=== PATIENT | female | born 1940 | race Caucasian/White ===

== ENCOUNTER → 2017-03-06 | Outpatient (CLI) | payer MEDICARE, OTHER | END | disposition home or self-care (01) | LOC: GMAM 11:39 | PROVIDERS: ATTEND Family Medicine | DX: N39.0 Urinary tract infection, site not specified (principal); R11.2 Nausea with vomiting, unspecified ==

== ENCOUNTER → 2017-03-27 | Outpatient (CLI) | payer MEDICARE, OTHER | END | disposition home or self-care (01) | LOC: GMAH 10:49 | PROVIDERS: ATTEND Family Medicine | DX: E03.9 Hypothyroidism, unspecified (principal) ==

== ENCOUNTER → 2017-03-28 | Outpatient (CLI) | payer MEDICARE, OTHER ==
--- NOTE | 2017-03-29 08:51 | US ---
EXAM DESCRIPTION: Soft Tissue,Head/Neck CLINICAL HISTORY: 76 years, Female, SWELLING , right lower left neck COMPARISON: None. FINDINGS: Scanning of the perceived lump in the basal left side of neck is obtained. Lump corresponds to smooth 5.4 x 4.1 x 2.3 cm lesion with relatively little vascularity. Echogenicity similar to subcutaneous fat. IMPRESSION: Lump has features of a benign lipoma. It should be safe to follow this clinically. If additional characterization is needed CT or MRI can be considered Electronically signed by: Godfrey Driscoll MD 03/29/2017 8:49 AM CDT
== END | disposition home or self-care (01) ==
LOC: US 09:50
PROVIDERS: ATTEND Family Medicine
DX: R60.0 Localized edema (principal)

== ENCOUNTER 2017-07-10 08:00 | Day surgery (SDC) | payer MEDICARE, OTHER ==
[~2017-07-10 08:00] MED LIST: LIDOCAINE 1% MPF 5 ML VIAL ONE; PROPARACAINE 0.5% OPHTH SOL 15 ML BTTL ONE; TROP 1%/CYCLOPEN 1%/PHENYL 2% DROPS ONE
[2017-07-10] MEDS ORDERED: PROPARACAINE 0.5% OPHTH SOL 15 ML BTTL LEFT_EYE ONE ×2 (08:10→09:43)
[2017-07-10] MEDS: TOBRAMYCIN SULF 0.3 % OPHT SOL 1 DROP LEFT_EYE ONE ×3 (08:57→10:11)
[2017-07-10] MEDS ORDERED: TROP 1%/CYCLOPEN 1%/PHENYL 2% DROPS OPHTH ONE (09:00)
[2017-07-10] MEDS ORDERED: MIDAZOLAM INJ 2 MG/2 ML VIAL ONE ×2 (09:27→09:56)
[2017-07-10] MEDS ORDERED: DEXAMETHASONE 0.1% OPHTH SOL 1 DROP LEFT_EYE ONE ×2 (10:07→10:11)
[2017-07-10] MEDS ORDERED: BRIMONIDINE 0.2% OPHTH DROPS LEFT_EYE ONE ×2 (10:07→10:11)
[2017-07-10 11:17] VITALS: BP 126/66; TEMP 97.4; O2SAT 99
== END 2017-07-10 11:05 | disposition home or self-care (01) ==
LOC: AMB 08:00
PROVIDERS: ATTEND Ophthalmology
DX: H25.12 Age-related nuclear cataract, left eye (principal); Z88.0 Allergy status to penicillin; Z79.899 Other long term (current) drug therapy
CPT/HCPCS: 66984; J2250

== ENCOUNTER 2017-07-20 11:30 | Day surgery (SDC) | payer MEDICARE, OTHER ==
[~2017-07-20 11:30] MED LIST changes: -LIDOCAINE 1% MPF 5 ML VIAL ONE; +MIDAZOLAM INJ 2 MG/2 ML VIAL ONE; -PROPARACAINE 0.5% OPHTH SOL 15 ML BTTL ONE; -TROP 1%/CYCLOPEN 1%/PHENYL 2% DROPS ONE
[2017-07-20] MEDS ORDERED: TOBRAMYCIN SULF 0.3 % OPHT SOL 1 DROP RIGHT_EYE ONE ×5 (12:28→13:56)
[2017-07-20] MEDS ORDERED: TROP 1%/CYCLOPEN 1%/PHENYL 2% DROPS OPHTH ONE (12:28)
[2017-07-20] MEDS ORDERED: PROPARACAINE 0.5% OPHTH SOL 15 ML BTTL RIGHT_EYE ONE ×2 (12:28→13:56)
[2017-07-20 12:39] VITALS: TEMP 97; O2SAT 97
[2017-07-20] MEDS ORDERED: LIDOCAINE 1% PF 2 ML AMP INJ ONE (13:47)
[2017-07-20] MEDS ORDERED: DEXAMETHASONE 0.1% OPHTH SOL 1 DROP RIGHT_EYE ONE ×4 (13:48→13:56)
[2017-07-20] MEDS ORDERED: BRIMONIDINE 0.2% OPHTH DROPS RIGHT_EYE ONE ×4 (13:48→13:56)
[2017-07-20 15:35] VITALS: BP 120/68
== END 2017-07-20 14:30 | disposition home or self-care (01) ==
LOC: AMB 11:30
PROVIDERS: ATTEND Ophthalmology
DX: H25.11 Age-related nuclear cataract, right eye (principal); K74.60 Unspecified cirrhosis of liver; Z88.0 Allergy status to penicillin; Z79.899 Other long term (current) drug therapy
CPT/HCPCS: 66984; J2250

== ENCOUNTER 2018-01-31 19:56 | Observation (INO) | payer MEDICARE, OTHER ==
--- NOTE | 2018-01-31 20:28 | ED.PDOC ---
History of Present Illness - General Chief Complaint: Abdominal Pain Stated Complaint: abdomen pain all over, nausea Time Seen by Provider: 01/31/18 20:24 Source: patient, RN notes reviewed, Vital Signs reviewed Additional Information: 77 YEAR OLD PRESENTS WITH NAUSEA VOMITING ABDOMINAL PAIN ( NOW RESOLVED ) SINCE YESTERDAY AFTER TAKING ULTRAM AND CLINDAMYCIN THAT WAS PRESCRIBED IN A CLINIC IN [place] FOR A PAINFUL SWELLING ON THE RIGHT FACE IN THE PRE AURICULAR REGION ( SOUNDS LIKE DIAGNOSIS OF PAROTITIS FROM THE PATIENTS DISCRIPTION ) SHE HAS HISTORY OF CIRRHOSIS OF LIVER DIAGNOSED 4 YEARS AGO SHE IS SP CHOLECYSTECTOMY HYSTRECTOMY TUBAL HER MEDICATION INCLUDE TRAMADOL AND CLINDAMYCIN - History of Present Illness Timing/Duration: 24 hours Severity: mild Improving Factors: nothing Worsening Factors: medication Associated Symptoms: loss of appetite Allergies/Adverse Reactions: Allergies Penicillins Allergy (Verified 01/31/18 20:14) Hives Home Medications: Ambulatory Orders Levothyroxine Sodium [Synthroid] 75 mcg PO DAILY 11/28/15 Clindamycin HCl 300 mg PO Q8HRS 01/31/18 Tramadol HCl 50 mg PO Q6HRS PRN 01/31/18 Review of Systems - Review of Systems Constitutional: States: no symptoms reported EENTM: States: no symptoms reported Respiratory: States: no symptoms reported Cardiology: States: no symptoms reported Gastrointestinal/Abdominal: States: see HPI Genitourinary: States: no symptoms reported Musculoskeletal: States: no symptoms reported Skin: States: no symptoms reported Neurological: States: no symptoms reported Endocrine: States: no symptoms reported Hematologic/Lymphatic: States: no symptoms reported Past Medical History (General) - Patient Medical History Hx Seizures: No Hx Stroke: No Hx Dementia: No Hx Asthma: No Hx of COPD: No Hx Cardiac Disorders: No Hx Congestive Heart Failure: No Hx Pacemaker: No Hx Hypertension: No Hx Thyroid Disease: Yes Hx Diabetes: No Hx Gastroesophageal Reflux: No Hx Renal Disease: No Hx Cancer: No Hx of HIV: No Hx Hepatitis C: No Hx MRSA: No Surgical History: cholecystectomy, tonsillectomy, Hysterectomy - Vaccination History Hx Influenza Vaccination: Yes Hx Pneumococcal Vaccination: Yes - Social History Hx Tobacco Use: No Hx Alcohol Use: Yes Hx Substance Use: No Hx Physical Abuse: No Hx Emotional Abuse: No Family Medical History - Family History Mother Family History: Unknown Living Status: Unknown Physical Exam - Physical Exam General Appearance: Alert, Comfortable Eye Exam: bilateral normal Ears, Nose, Throat: hearing grossly normal, normal ENT inspection, normal pharynx Neck: non-tender, full range of motion, supple Respiratory: chest non-tender, lungs clear, normal breath sounds, no respiratory distress Cardiovascular/Chest: normal peripheral pulses, regular rate, rhythm, no edema, no gallop Peripheral Pulses: radial,right: 2+ Back Exam: normal inspection, no CVA tenderness, no vertebral tenderness, CVA tenderness (R) Extremity: normal range of motion, non-tender, normal inspection, no pedal edema 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, no motor/sensory deficits, alert Progress - Results/Orders Results/Orders: Laboratory Tests 01/31/18 01/31/18 01/31/18 20:31 20:32 20:50 WBC 11.4 H RBC 4.75 Hgb 13.6 Hct 40.2 MCV 84.7 MCH 28.6 MCHC 33.8 RDW 12.7 Plt Count 390 MPV 7.2 L Absolute Neuts (auto) 9.10 H Absolute Lymphs (auto) 1.40 Absolute Monos (auto) 0.80 Absolute Eos (auto) 0.00 Absolute Basos (auto) 0.00 Neutrophils % 80.0 H Lymphocytes % 12.4 L Monocytes % 7.1 Eosinophils % 0.2 L Basophils % 0.3 PT 11.2 INR 0.970 PTT (SP) 31.8 Sodium 138 Potassium 4.0 Chloride 103 Carbon Dioxide 28 Anion Gap 11.0 L BUN 13 Creatinine 0.88 BUN/Creatinine Ratio 14.8 Random Glucose 126 H Serum Osmolality 277.3 Calcium 9.3 Total Bilirubin 0.9 AST 113 H ALT 58 Alkaline Phosphatase 93 Serum Total Protein 6.9 Albumin 3.6 Globulin 3.3 Albumin/Globulin Ratio 1.1 Urine Color Urine Appearance Urine pH Ur Specific [place] Urine Protein Urine Glucose (UA) Urine Ketones Urine Blood Urine Nitrite Urine Bilirubin Urine Urobilinogen Ur Leukocyte Esterase Urine RBC Urine WBC Ur Epithelial Cells Urine Bacteria 01/31/18 22:59 WBC RBC Hgb Hct MCV MCH MCHC RDW Plt Count MPV Absolute Neuts (auto) Absolute Lymphs (auto) Absolute Monos (auto) Absolute Eos (auto) Absolute Basos (auto) Neutrophils % Lymphocytes % Monocytes % Eosinophils % Basophils % PT INR PTT (SP) Sodium Potassium Chloride Carbon Dioxide Anion Gap BUN Creatinine BUN/Creatinine Ratio Random Glucose Serum Osmolality Calcium Total Bilirubin AST ALT Alkaline Phosphatase Serum Total Protein Albumin Globulin Albumin/Globulin Ratio Urine Color Yellow Urine Appearance Clear Urine pH 7.5 Ur Specific [place] 1.015 Urine Protein Negative Urine Glucose (UA) Negative Urine Ketones Trace Urine Blood Negative Urine Nitrite Negative Urine Bilirubin Negative Urine Urobilinogen 1.0 Ur Leukocyte Esterase Trace H Urine RBC 0 Urine WBC 1-3 Ur Epithelial Cells 0 Urine Bacteria 1+ REASSESSMENT 11 25 PATIENT COMPLAINTS OF NAUSEA HAS NOT VOMITED ANY SINCE HER ARRIVAL VS STABLE LAB DATA UNREMARKABLE ABD EXAM SOFT MINIMAL EPIGASTIC TENDERNESS NO GAURDING NO REBOUND NORMAL BOWEL SOUNDS Departure - Departure Clinical Impression: Abdominal pain, Gastritis Time of Disposition: 23:40 Disposition: Admit Patient Condition: Good Departure Forms: ED Discharge - Pt. Copy, Patient Portal Self Enrollment Instructions: DI for Abdominal Pain-Adult Referrals: Darin Rashid MD [Primary Care Provider] - 1-2 Weeks Home Medications: Ambulatory Orders Levothyroxine Sodium [Synthroid] 75 mcg PO DAILY 11/28/15 Clindamycin HCl 300 mg PO Q8HRS 01/31/18 Tramadol HCl 50 mg PO Q6HRS PRN 01/31/18 Comments: DUSCSSED WITH [facility] WILL ADMIT FOR OBSERVATION AND REASSESMENT
[2018-01-31] MEDS ORDERED: SODIUM CHLORIDE 0.9% 1000ML 1,000 ML IVS ONE (20:30)
[2018-01-31] MEDS ORDERED: ONDANSETRON INJ 4 MG/2 ML VIAL IV ONE (20:31)
[2018-01-31] MEDS ORDERED: MORPHINE SULFATE INJ 10 MG/ML VIAL IV ONE (22:26)
[2018-02-01] MEDS ORDERED: SODIUM CHLORIDE 0.9% (FLUSH) 10 ML SYG IV PRN (00:06)
[2018-02-01] MEDS ORDERED: SODIUM CHLORIDE 0.45% 1000ML 1,000 ML IV PRN (00:08)
[2018-02-01] MEDS ORDERED: ONDANSETRON INJ 4 MG/2 ML VIAL IV PRN (00:08)
[2018-02-01] MEDS ORDERED: MORPHINE SULFATE INJ 10 MG/ML VIAL IV PRN (00:08)
[2018-02-01] MEDS ORDERED: IV SET AND CAP CHANGE INJ INJ SCH (00:30)
[2018-02-01] MEDS ORDERED: PANTOPRAZOLE SODIUM IV 40 MG VIAL IV SCH (00:30)
[2018-02-01] MEDS ORDERED: SODIUM CHLORIDE 0.9% (FLUSH) 10 ML SYG IV SCH (09:00)
[2018-02-01] MEDS ORDERED: LEVOTHYROXINE SODIUM 0.075 MG TAB PO SCH (10:15)
--- NOTE | 2018-02-01 11:00 | CT ---
EXAM DESCRIPTION: Abdomen/Pelvis w/wo Contrast: Computed Tomography. CLINICAL HISTORY: elevated LFTs COMPARISON: CT scan abdomen and pelvis 05/30/2013. TECHNIQUE: Spiral-axial scans at 5.0 mm intervals through the abdomen and pelvis before and after standard dose nonionic IV contrast. No oral contrast. Coronal and sagittal 2.0 mm reconstructions. 5 mm Delayed helical-axial scans, liver through the pubic symphysis. No adverse reactions. Total Exam DLP 1625.01 mGy - cm. This exam was performed according to our departmental CT dose-optimization program which includes automated exposure control, adjustment of the mA and/or kV according to patient size and/or use of iterative reconstruction technique; to reduce radiation dose to as low as reasonably achievable (ALARA). FINDINGS: Lung bases and pleura: Bibasilar pleural thickening with minimal scarring in the left lower lobe base. No pleural effusion. Liver, Stomach, Spleen, Adrenal Glands: Liver normal size and contrast enhancement. No focal lesions. Minimal distal intrahepatic duct dilation. Smooth capsule. No ascites. Stomach is negative. Solid organs are unremarkable. Pancreas, Gallbladder, Ducts: Surgical clips in the gallbladder fossa with no fluid. Minimal dilation of the common bile duct interpreted to be physiologic postcholecystectomy. Pancreas negative. Kidneys and Ureters: less than 5 mm diameter nonenhancing object inferior pole left kidney. Otherwise both kidneys and ureters are unremarkable. Mesentery: No fascial thickening or stranding. No free air or ascites. Aorta: Negative. Small Bowel: fluid proximally and gas distally no significant air-fluid levels or distention. Terminal Ileum/Cecum: Normal caliber. Appendix not seen. Normal density of the surrounding fat. Colon: Fecal material proximally. Redundant sigmoid diverticula but no complications. Pelvic Organs: Vaginal cuff abutting the urinary bladder. No radiodense stones in the urinary bladder. Ovaries not seen. No fluid in the cul-de-sac. Spine and Bony Pelvis: Minimal left curvature. Abdominal Wall/Back Soft Tissues: Unremarkable. IMPRESSION: 1. No abnormalities on CT scan of the liver. 2. Prior cholecystectomy. Common bile duct dilation interpreted to be physiologic. 3. Small nonenhancing object less than 5 mm inferior pole of the left kidney, too small to be resolved by CT scan. 4. Diverticulosis of the distal colon with no evidence of complications. Electronically signed by: Prasanna Stewart MD 02/01/2018 10:59 AM CDT
--- NOTE | 2018-02-01 15:42 | SSS ---
SUPERVISING PHYSICIAN: Jl Trent MD DISCHARGE DIAGNOSIS: 1. Nausea and vomiting secondary to tramadol. 2. Parotitis of the right side, recently being treated with clindamycin. 3. Elevated liver function tests with a history of nonalcoholic cirrhosis. CHIEF COMPLAINT: Nausea and vomiting with abdominal pain. HISTORY OF PRESENT ILLNESS: This is a 77-year-old female the patient who presented to the Emergency Room with nausea, vomiting, abdominal pain since yesterday. She had been in [place] and several days prior went to an urgent care due to pain in the right side of her jaw. It was very difficult to open her mouth and she was diagnosed with right parotitis. She was given clindamycin and tramadol. She took the clindamycin without any problems, but as soon as she took her dose of tramadol, she became very nauseated and actually vomited multiple times. In the Emergency Room, her WBCs were elevated at 11,400 with a hemoglobin 13.6 and hematocrit 40.2. She did have a slight left shift and platelet count was 390. Electrolytes were within normal limits. Glucose was slightly elevated at 136 and AST was slightly elevated at 113, but the remainder of her liver enzymes were within normal limits. Urinalysis was basically within normal limits. She continued to have nausea and vomiting in the Emergency Room. She was extremely weak. I was called for hospital admission. In the Emergency Room, the patient received morphine, Ativan, Zofran , Protonix and 1 liter of saline. PAST MEDICAL HISTORY: 1. Seasonal allergies. 2. Cirrhosis of the liver, nonalcoholic related. 3. Hypothyroidism. 4. Depression. 5. Osteoporosis. 6. Questionable seizure disorder from back in the . PAST SURGICAL HISTORY: 1. Cholecystectomy. 2. Hysterectomy. ALLERGIES: PENICILLIN. SOCIAL HISTORY: She lives in [place]. She denies any tobacco, ETOH or illicit drug use. REVIEW OF SYSTEMS: GENERAL: Positive for fever and chills. Negative for fatigue or weight changes. HEENT: Positive for right jaw pain. Negative for sinus symptoms, vision changes. RESPIRATORY: Negative for wheezing, coughing or shortness of breath. CARDIAC: Negative for chest pain, palpitations or tachycardia. GASTROINTESTINAL: As per history of present illness. GENITOURINARY: Negative for hematuria, dysuria or polyuria. NEUROLOGIC: Negative for headache, dizziness or seizures. PHYSICAL EXAMINATION: VITAL SIGNS: T-max since admission was 99. Pulse rate 73. Blood pressure 116/ 68. Respiratory rate 16. O2 saturation 98% on room air. GENERAL: This is a 77-year-old female patient who is lying in her hospital bed. She is in no acute distress. HEENT: Normocephalic, atraumatic. Pupils are equal and reactive. The right side of her face along the right jaw is slightly edematous. There is no erythema or warmth noted. It is slightly tender to palpation. NECK: Supple without mass. RESPIRATORY: Essentially clear to auscultation bilaterally. CHEST: There is equal rise and fall of the chest with inspiration and expiration. CARDIOVASCULAR: Regular rate and rhythm. GASTROINTESTINAL: Abdomen is soft, nondistended, nontender. Bowel sounds are positive. EXTREMITIES: No cyanosis, clubbing or edema. NEUROLOGIC: Awake, alert and oriented times three. HOSPITAL COURSE: The patient was given fluids as well as several doses of Zofran. She was restarted on her clindamycin. Labs were completed this morning and her liver enzymes did elevated slightly. AST was 167, ALT 102, serum total protein low at 5.7, albumin low at 3.1. CT of the abdomen and pelvis was done and per radiologic interpretation shows 1) No abnormalities on CT scan of the liver. 2) Prior cholecystectomy, common bile duct dilation interpreted to be physiologic. 3) Small non-enhancing object less than 5 mm, inferior pole of the left kidney, too small to be characterized by CT scan. 4) Diverticulosis of the distal colon with no evidence of complications. Due to her history of liver problems as well as her nausea and vomiting that was later reported that she had on and off for several years, I have also ordered a hepatitis panel that is pending. She will be discharged home today in stable condition to followup with her doctor. DISCHARGE PLAN: The patient will be discharged home in stable condition. She is to consume a bland diet and advance it as tolerated. She is to resume her previous activity as well as continue with her home medications with the exception that she should no longer take tramadol and be cautious with that medication. She has a followup with Dr. Rashid on 02/05/18 at 1:45 PM. I will also send her home on some Zofran to help with the nausea until she can get further workup with Dr. Rashid. DISCHARGE MEDICATIONS: 1. Levothyroxine. 2. Clindamycin. 3. Zofran. Dr. Trent is the collaborating physician and available for consultation. #[id number] [facility]
[2018-02-01 17:03] VITALS: BP 122/71; TEMP 98.2
[2018-02-01 18:04] VITALS: O2SAT 97
[2018-02-02] MEDS ORDERED: PANTOPRAZOLE SODIUM TAB 40 MG PO SCH (06:30)
== END 2018-02-01 16:20 | disposition home or self-care (01) ==
LOC: ER 19:56 → MS 23:36
PROVIDERS: ADMIT Nurse Practitioner Acute Care; ATTEND Nurse Practitioner Acute Care
DX: K11.20 Sialoadenitis, unspecified (principal); R11.2 Nausea with vomiting, unspecified; T40.4X5A Adverse effect of other synthetic narcotics, initial encounter; R10.13 Epigastric pain; R74.8 Abnormal levels of other serum enzymes; K74.60 Unspecified cirrhosis of liver; R73.9 Hyperglycemia, unspecified; K57.30 Diverticulosis of large intestine without perforation or abscess without bleeding; E03.9 Hypothyroidism, unspecified; F32.9 Major depressive disorder, single episode, unspecified; M81.0 Age-related osteoporosis without current pathological fracture; Y92.009 Unspecified place in unspecified non-institutional (private) residence as the place of occurrence of the external cause; Z79.899 Other long term (current) drug therapy; Z88.0 Allergy status to penicillin; Z90.49 Acquired absence of other specified parts of digestive tract
CPT/HCPCS: 96375 ×2; 96376; J2270; J2405 ×2; J7799; J7030; 80053 ×2; 36415 ×3; 80074; 81001; 85025 ×2; 87040 ×2; 85730; 85610; 74178; 94760 ×5; 99285; 96361; 96374

== ENCOUNTER 2019-02-02 07:20 | Emergency (ER) | payer MEDICARE, OTHER ==
--- NOTE | 2019-02-02 07:49 | ED.PDOC ---
History of Present Illness - General Chief Complaint: Abdominal Pain Stated Complaint: abdominal pain,vomiting Time Seen by Provider: 02/02/19 07:44 Source: patient - History of Present Illness Initial Comments: Nell Velez 78 y/o female brought by EMS to ER with several episodes of nausea /vomiting started this am and becoming bilous vomiting but no hematemesis or melena.Has history of Liver cirrhosis DX 4 years ago stating took higher dose of thyroid medications and had been followed up by GI specialist. Had also abdominal discomfort and unable to keep anything down. Timing/Duration: 4-6 hours Severity: moderate Improving Factors: nothing Worsening Factors: eating Associated Symptoms: denies symptoms Allergies/Adverse Reactions: Allergies Penicillins Allergy (Verified 01/31/18 20:14) Hives Tramadol [From Ultram] Allergy (Verified 02/01/18 16:11) Home Medications: Ambulatory Orders Levothyroxine Sodium [Synthroid] 75 mcg PO DAILY 11/28/15 Ondansetron [Zofran Odt] 4 mg PO Q6H PRN #30 tab 02/01/18 Ondansetron Odt [Zofran ODT] 8 mg PO Q8HRS PRN #10 tab 02/02/19 Promethazine W/Codeine Syr [Phenergan With Codeine Syrup] 5 ml PO Q8HRS PRN #120 ml 02/02/19 Review of Systems - Review of Systems Constitutional: States: no symptoms reported EENTM: States: no symptoms reported Respiratory: States: no symptoms reported Cardiology: States: no symptoms reported Gastrointestinal/Abdominal: States: see HPI Genitourinary: States: no symptoms reported Musculoskeletal: States: no symptoms reported All other Systems: Reviewed and Negative, No Change from Baseline Past Medical History (General) - Patient Medical History Hx Seizures: Yes - in her 40's, none since Hx Stroke: No Hx Dementia: No Hx Asthma: No Hx of COPD: No Hx Cardiac Disorders: No Hx Congestive Heart Failure: No Hx Pacemaker: No Hx Hypertension: No Hx Thyroid Disease: Yes Hx Diabetes: No Hx Gastroesophageal Reflux: No Hx Renal Disease: No Hx Cancer: No Hx of HIV: No Hx Hepatitis C: No Hx MRSA: No Surgical History: cholecystectomy, tonsillectomy, other - hysterectomy - Vaccination History Hx Influenza Vaccination: Yes Hx Pneumococcal Vaccination: Yes - Social History Hx Tobacco Use: No Hx Alcohol Use: No Hx Substance Use: No Hx Physical Abuse: No Hx Emotional Abuse: No Family Medical History - Family History Mother Family History: Unknown Living Status: Hx Family Asthma: No Hx Family Congestive Heart Failure: No Hx Family Hypertension: No Hx Family Stroke: No Hx Cardiac Disease: Yes - parents Hx Family Diabetes: No Hx Family Cancer: No Hx Family;Other: brother-cirrhosis Sister Living Status: Hx Family Asthma: No Hx Family Congestive Heart Failure: No Hx Family Hypertension: No Hx Family Stroke: No Hx Cardiac Disease: No Hx Family Diabetes: No Hx Family Cancer: Yes - lung cancer Physical Exam - Physical Exam General Appearance: Alert, Comfortable, No apparent distress Eye Exam: bilateral normal Ears, Nose, Throat: hearing grossly normal, normal ENT inspection, normal pharynx Neck: non-tender, full range of motion, supple, normal inspection Respiratory: chest non-tender, lungs clear, normal breath sounds, no respiratory distress Cardiovascular/Chest: normal peripheral pulses, regular rate, rhythm, no murmur Peripheral Pulses: radial,right: 2+, radial,left: 2+ Gastrointestinal/Abdominal: non tender, soft, distended, other - no peritoneal signs Back Exam: no CVA tenderness, no vertebral tenderness Extremity: no pedal edema, no calf tenderness Neurologic: alert, oriented x 3 Skin Exam: normal color, warm/dry Progress - Progress Progress: 02/02/19 07:53 02/02/19 07:49 CARDIAC PANEL,ER Stat HEPATIC FUNCTION PANEL Stat Abdomen Series [RAD] Stat URINALYSIS Stat - Results/Orders Results/Orders: Laboratory Results - last 24 hr 02/02/19 02/02/19 02/02/19 08:00 08:00 08:54 WBC 14.6 H RBC 5.06 Hgb 14.4 Hct 43.2 MCV 85.4 MCH 28.4 MCHC 33.3 RDW 13.4 Plt Count 324 MPV 6.6 L Absolute Neuts (auto) 13.50 H Absolute Lymphs (auto) 0.50 L Absolute Monos (auto) 0.60 Absolute Eos (auto) 0.10 Absolute Basos (auto) 0.00 Neutrophils % 92.1 H Lymphocytes % 3.5 L Monocytes % 3.8 Eosinophils % 0.4 L Basophils % 0.2 PT 9.4 INR 0.94 PTT (SP) 23.4 Sodium 140 Potassium 3.9 Chloride 105 Carbon Dioxide 25 Anion Gap 13.9 BUN 16 Creatinine 0.79 BUN/Creatinine Ratio 20.3 H Random Glucose 98 Serum Osmolality 280.6 Lactic Acid Cancelled Calcium 8.3 L Magnesium 1.7 L Total Bilirubin 0.6 Direct Bilirubin 0.1 Indirect Bilirubin 0.5 AST 74 H ALT 42 Alkaline Phosphatase 70 Creatine Kinase 48 CK-MB (CK-2) 1.8 CK-MB (CK-2) % Not Reportable Troponin I < 0.02 Serum Total Protein 6.6 Albumin 3.5 Lipase 36 Urine Color Urine Appearance Urine pH Ur Specific [place] Urine Protein Urine Glucose (UA) Urine Ketones Urine Blood Urine Nitrite Urine Bilirubin Urine Urobilinogen Ur Leukocyte Esterase Urine RBC Urine WBC Ur Epithelial Cells Urine Bacteria 02/02/19 09:10 WBC RBC Hgb Hct MCV MCH MCHC RDW Plt Count MPV Absolute Neuts (auto) Absolute Lymphs (auto) Absolute Monos (auto) Absolute Eos (auto) Absolute Basos (auto) Neutrophils % Lymphocytes % Monocytes % Eosinophils % Basophils % PT INR PTT (SP) Sodium Potassium Chloride Carbon Dioxide Anion Gap BUN Creatinine BUN/Creatinine Ratio Random Glucose Serum Osmolality Lactic Acid Calcium Magnesium Total Bilirubin Direct Bilirubin Indirect Bilirubin AST ALT Alkaline Phosphatase Creatine Kinase CK-MB (CK-2) CK-MB (CK-2) % Troponin I Serum Total Protein Albumin Lipase Urine Color Yellow Urine Appearance Clear Urine pH 8.5 H Ur Specific [place] 1.015 Urine Protein Negative Urine Glucose (UA) Negative Urine Ketones Negative Urine Blood Negative Urine Nitrite Negative Urine Bilirubin Negative Urine Urobilinogen 0.2 Ur Leukocyte Esterase Negative Urine RBC 0 Urine WBC 0 Ur Epithelial Cells 3-5 Urine Bacteria 0 Discuss all test result with patient and was advised to eat small frequent meal ;also clear liquids;to come back to ER if symptoms worsens. - EKG/XRAY/CT CT Ordered: Yes - abd/P-enteritis;mild ileus Departure - Departure Clinical Impression: Enteritis, Hypomagnesemia Nausea & vomiting Qualifiers: Vomiting type: unspecified Vomiting Intractability: non-intractable Qualified Code(s): R11.2 - Nausea with vomiting, unspecified Time of Disposition: 11:53 Disposition: Discharge to Home or Self Care Condition: Fair Departure Forms: ED Discharge - Pt. Copy, Patient Portal Self Enrollment Instructions: Viral Gastroenteritis, Viral Gastroenteritis, Adult (DC) Diet: bland diet, other - Avoid GREASY /SPICY foods and chicken noodle soup until better;May have clear liquids-ninfa sarah ice tea,crackers,dry cereals Referrals: Darin Rashid MD [Primary Care Provider] - 1-2 Weeks Prescriptions: Ondansetron Odt [Zofran ODT] 8 mg PO Q8HRS PRN #10 tab PRN Reason: Nausea/Vomiting Promethazine W/Codeine Syr [Phenergan With Codeine Syrup] 5 ml PO Q8HRS PRN #120 ml PRN Reason: Pain Home Medications: Ambulatory Orders Levothyroxine Sodium [Synthroid] 75 mcg PO DAILY 11/28/15 Ondansetron [Zofran Odt] 4 mg PO Q6H PRN #30 tab 02/01/18 Ondansetron Odt [Zofran ODT] 8 mg PO Q8HRS PRN #10 tab 02/02/19 Promethazine W/Codeine Syr [Phenergan With Codeine Syrup] 5 ml PO Q8HRS PRN #120 ml 02/02/19
[2019-02-02] MEDS ORDERED: PANTOPRAZOLE INJECTION 80 MG in SODIUM CHLORIDE 0.9% 100ML 80 ML IVPB ONE (07:56)
[2019-02-02] MEDS ORDERED: PANTOPRAZOLE SODIUM IV 40 MG VIAL ONE (07:57)
[2019-02-02] MEDS ORDERED: SODIUM CHLORIDE 0.9% 100ML 100 ML IVPB ONE (07:57)
[2019-02-02] MEDS ORDERED: PROCHLORPERAZINE INJ 10 MG/2 ML VIAL IV ONE (08:01)
--- NOTE | 2019-02-02 08:22 | RAD ---
EXAM: XR Abdomen 2 Views With XR Chest CLINICAL HISTORY: 78 years old and is Female; pain /distention belly TECHNIQUE: Frontal view of the chest, frontal view of the abdomen/pelvis and upright or decubitus view of the abdomen. COMPARISON: No relevant prior studies available. FINDINGS: Limitations: None. Lungs: Unremarkable. No consolidation. Pleural space: Unremarkable. No pneumothorax. Heart: Unremarkable. No cardiomegaly. Mediastinum: Unremarkable. Intraperitoneal space: No free air. Gastrointestinal tract: Small amount of air and formed stool throughout the intestinal tract. No distention. Organs: Cholecystectomy. Bones/joints: Unremarkable. IMPRESSION: No acute findings. Electronically signed by: Julianna Krause MD 02/02/2019 8:20 AM CDT
[2019-02-02] MEDS ORDERED: SODIUM CHLORIDE 0.9% 500ML 500 ML IVS ONE (09:57)
[2019-02-02 10:23] VITALS: O2SAT 94
[2019-02-02] MEDS ORDERED: ONDANSETRON INJ 4 MG/2 ML VIAL IV ONE (10:46)
[2019-02-02] MEDS ORDERED: MAGNESIUM SULFATE PREMIX 2GM 50 ML IVPB ONE (10:50)
[2019-02-02] MEDS ORDERED: MAGNESIUM SULFATE PREMIX 2GM 2 GM in PREMIX BAG 1 BAG IVPB ONE (10:50)
--- NOTE | 2019-02-02 11:09 | CT ---
EXAM: CT Abdomen and Pelvis Without Intravenous Contrast CLINICAL HISTORY: 78 years old and is Female; pain TECHNIQUE: Axial computed tomography images of the abdomen and pelvis without intravenous contrast. Sagittal and coronal reformatted images were created and reviewed. This CT exam was performed using one or more of the following dose reduction techniques: automated exposure control, adjustment of the mA and/or kV according to patient size, and/or use of iterative reconstruction technique. COMPARISON: No relevant prior studies available. FINDINGS: Limitations: None. Lung bases: Unremarkable. No mass. No consolidation. Mediastinum: Small sliding hiatal hernia noted. ABDOMEN: Liver: Unremarkable. Gallbladder and bile ducts: Cholecystectomy. No ductal dilation. Pancreas: Unremarkable. No ductal dilation. Spleen: Unremarkable. No splenomegaly. Adrenals: Unremarkable. No mass. Kidneys and ureters: Unremarkable. No obstructing stones. No hydronephrosis. Stomach and bowel: There are mildly inflamed small bowel loops without obstruction. There is a moderate amount of stool in the colon. There is colonic diverticulosis. No mucosal thickening. PELVIS: Appendix: No findings to suggest acute appendicitis. Bladder: Unremarkable. No stones. Reproductive: Unremarkable as visualized. ABDOMEN and PELVIS: Intraperitoneal space: Unremarkable. No free air. No significant fluid collection. Bones/joints: No acute fracture. No dislocation. Soft tissues: Unremarkable. Vasculature: Unremarkable. No abdominal aortic aneurysm. Lymph nodes: Unremarkable. No enlarged lymph nodes. IMPRESSION: Mild nonspecific enteritis and mild ileus. Electronically signed by: Julianna Krause MD 02/02/2019 11:07 AM CDT
[2019-02-02 12:20] VITALS: BP 121/61; TEMP 99
== END 2019-02-02 12:20 | disposition home or self-care (01) ==
LOC: ER 07:20
DX: K52.9 Noninfective gastroenteritis and colitis, unspecified (principal); E83.42 Hypomagnesemia; E07.9 Disorder of thyroid, unspecified; K74.60 Unspecified cirrhosis of liver; Z90.49 Acquired absence of other specified parts of digestive tract; Z79.899 Other long term (current) drug therapy; Z88.0 Allergy status to penicillin; Z88.5 Allergy status to narcotic agent
CPT/HCPCS: 36415; 74019; 74176; 80048; 80076; 81001; 82550; 82553; 83690; 84484; 85025; 85610; 85730; J0780; J2060; J2405; J3475; J7040; J7050

== ENCOUNTER → 2019-05-10 | Outpatient (CLI) | payer MEDICARE, OTHER | LOC: GMA MATASK 10:22 | PROVIDERS: ATTEND Family Medicine | DX: E03.9 Hypothyroidism, unspecified (principal); E78.2 Mixed hyperlipidemia ==

== ENCOUNTER → 2020-03-24 | Outpatient (CLI) | payer MEDICARE, OTHER ==
--- NOTE | 2020-03-24 17:19 | RAD ---
EXAM DESCRIPTION: Lumbar Spine 3 Views CLINICAL HISTORY: LOW BACK PAIN COMPARISON: CT the abdomen pelvis dated for January 2019 TECHNIQUE: AP/lateral/coned-down lateral FINDINGS: Surgical clips are seen in the right upper quadrant. The lumbar vertebral bodies are in good AP alignment. The disc spaces are maintained. Mild facet joint arthritis is observed in the lower lumbar spine. I see no evidence of spondylolysis or spondylolisthesis. IMPRESSION: Mild facet joint arthritis is observed in the lower lumbar spine. The exam is otherwise unremarkable. Electronically signed by: Logan Joseph MD 03/24/2020 4:43 PM CDT
== END ==
LOC: RAD 09:37
PROVIDERS: ATTEND Family Medicine
DX: M47.896 Other spondylosis, lumbar region (principal); K74.60 Unspecified cirrhosis of liver; E03.9 Hypothyroidism, unspecified; Z13.220 Encounter for screening for lipoid disorders

== ENCOUNTER → 2020-05-18 | Outpatient (CLI) | payer MEDICARE, OTHER | LOC: LAB.O 09:21 | PROVIDERS: ATTEND Family Medicine | DX: E03.9 Hypothyroidism, unspecified (principal) ==